=== PATIENT | female | born 2000 | race Hispanic/Latino ===

== ENCOUNTER 2021-04-23 19:49 | Emergency (ER) | payer OTHER ==
[~2021-04-23] VITALS: Ht 175.3 cm; Wt 61.9 kg
[2021-04-23 23:35] LABS: BASO # 0.1 10^3/uL (0.0-0.2); BASO % 0.5 % (0.0-1.0); EOS # 0.2 10^3/uL (0.0-0.5); EOS % 1.7 % (0.0-3.0); HEMATOCRIT 41.8 % (36.0-47.0); HEMOGLOBIN 13.4 g/dl (12.0-15.5); LYMPH # 3.8 10^3/uL (1.5-5.0); LYMPH % 36.4 % (24.0-44.0); MEAN CORPUSCULAR HEMOGLOBIN 26.3 pg (27.0-33.0); MEAN CORPUSCULAR HGB CONC 32.1 g/dl (32.0-36.5); MEAN CORPUSCULAR VOLUME 82.1 fl (80.0-96.0); MONO # 0.7 10^3/uL (0.0-0.8); MONO % 6.6 % (2.0-8.0); NEUTROPHILS # 5.7 10^3/uL (1.5-8.5); NEUTROPHILS % 54.4 % (36.0-66.0); PLATELET COUNT, AUTOMATED 272 10^3/uL (150-450); RED BLOOD COUNT 5.09 10^6/uL (4.00-5.40); WHITE BLOOD COUNT 10.4 10^3/uL (4.0-10.0)
[2021-04-24 00:12] LABS: FREE T4 0.94 NG/DL (0.78-1.33); THYROID STIMULATING HORMONE 3.67 uIU/ML (0.463-3.98)
[2021-04-24 00:51] VITALS: BP 108/52
== END 2021-04-24 00:52 | disposition home or self-care (01) ==
LOC: M ED 19:49
DX: L28.2 Other prurigo (principal); L63.9 Alopecia areata, unspecified

== ENCOUNTER 2024-02-14 09:44 | Emergency (ER) | payer OTHER ==
[~2024-02-14] VITALS: Ht 175.3 cm; Wt 70.9 kg
[2024-02-14] MEDS ORDERED: IBUP-1022 PO (11:44)
[2024-02-14] MEDS ORDERED: CYCL-707 PO (11:44)
[2024-02-14 12:01] VITALS: BP 123/58; TEMP 98; O2SAT 98
== END 2024-02-14 12:02 | disposition home or self-care (01) ==
LOC: M ED 09:44
DX: M54.16 Radiculopathy, lumbar region (principal); Z79.1 Long term (current) use of non-steroidal anti-inflammatories (NSAID); Z79.899 Other long term (current) drug therapy